=== PATIENT | female | born 1985 ===

== ENCOUNTER 2017-03-22 11:34 | Emergency (ER) | payer BC ==
[2017-03-22 12:13] VITALS: BP 120/82
--- NOTE | 2017-03-22 12:24 | UC ---
Respiratory Complaint HPI - HPI Summary HPI Summary: Pt c/o "burning chest" chest congestion and cough X 2 weeks. - History of Current Complaint Chief Complaint: UCRespiratory Stated Complaint: CONGESTION SNEEZING COUGH Time Seen by Provider: 03/22/17 12:19 Hx Obtained From: Patient Hx Last Menstrual Period: 02/28/17 ?: No Onset/Duration: Gradual Onset, Lasting Weeks, Still Present, Worse Since - onset Timing: Constant Severity Initially: Mild Severity Currently: Mild Character: Cough: Nonproductive Aggravating Factors: Exertion, Deep Breaths, Recumbent Position Alleviating Factors: Nothing Associated Signs And Symptoms: Positive: URI, Nasal Congestion - Allergies/Home Medications Allergies/Adverse Reactions: Allergies Allergy/AdvReac Type Severity Reaction Status Date / Time Shellfish Allergy Allergy Intermediate Hives Verified 03/22/17 12:13 Sulfa Antibiotics Allergy Hives Verified 03/22/17 12:14 Home Medications: Home Medications [id number] [Calcium & Magnesium + Zin 334-134-5 mg] 1 tab PO DAILY 03/22/17 [History Confirmed 03/22/17] Etonogestrel [Nexplanon] 68 mg IMPLANT ONCE 03/22/17 [History Confirmed 03/22/17 ] PMH/Surg Hx/FS Hx/Imm Hx Previously Healthy: Yes - Surgical History Surgical History: Yes Surgery Procedure, Year, and Place: left hand 2012 - Social History Occupation: Employed Full-time Lives: With Family Alcohol Use: Occasionally Substance Use Type: None Smoking Status (MU): Never Smoked Tobacco Have You Smoked in the Last Year: No - Immunization History Most Recent Influenza Vaccination: no Review of Systems Constitutional: Chills, Fatigue Skin: Negative Eyes: Negative ENT: Negative Respiratory: Cough Cardiovascular: Negative Gastrointestinal: Negative Genitourinary: Negative Motor: Negative Neurovascular: Negative Musculoskeletal: Negative Neurological: Negative Psychological: Negative Is Patient Immunocompromised?: No All Other Systems Reviewed And Are Negative: Yes Physical Exam Triage Information Reviewed: Yes Appearance: Well-Appearing Vital Signs: Initial Vital Signs Temp 98.6 F 03/22/17 12:09 Pulse 77 03/22/17 12:09 Resp 14 03/22/17 12:09 BP 120/82 03/22/17 12:09 Pulse Ox 100 03/22/17 12:09 Vital Signs Reviewed: Yes Eye Exam: Normal ENT Exam: Other ENT: Positive: TM bulging - bilateral Dental Exam: Normal Neck exam: Normal Respiratory Exam: Normal Respiratory: Positive: Decreased breath sounds - bialateral bases Cardiovascular Exam: Normal Musculoskeletal Exam: Normal Neurological Exam: Normal Psychological Exam: Normal Skin Exam: Normal UC Diagnostic Evaluation - Laboratory O2 Sat by Pulse Oximetry: 100 Respiratory Course/Dx - Differential Dx/Diagnosis Differential Diagnosis/HQI/PQRI: Bronchitis, Other - post viral cough Provider Diagnoses: post viral cough Discharge - Discharge Plan Condition: Stable Disposition: HOME Prescriptions: Benzonatate CAP* [Tessalon 100 MG CAP*] 100 mg PO Q8H PRN #30 cap PRN Reason: Cough methylPREDNISolone TAB* [Medrol TAB*] 4 - 8 mg PO .SEE DEMETRIUS #1 demetrius Patient Education Materials: Viral Syndrome (ED), Acute Cough (ED) Referrals: No Primary Care Phys,NOPCP [Primary Care Provider] - If Needed
== END 2017-03-22 12:32 | disposition home or self-care (01) ==
LOC: UCCORT 11:34
DX: R05 Cough (principal)
CPT/HCPCS: 99212; G0463